=== PATIENT | male | born 2005 | race Caucasian/White ===

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

== ENCOUNTER 2024-07-09 00:08 | Emergency (ER) | payer SELFPAY ==
[2024-07-09 00:24] VITALS: TEMP 99.1
--- NOTE | 2024-07-09 00:39 | ERPHSYRPT ---
- History of Present Illness Time Seen by Provider: 07/09/24 00:38 Historian: patient Exam Limitations: no limitations Patient Subjective Stated Complaint: pt states that he woke up vomiting Triage Nursing Assessment: pt ambulated into the er; pt is axo x4; c/o vomiting; pt states 3/10 pain to abd; abd flat, soft, tender; c/o N/V, denies diarrhea; tenderness to epigastric; mucus membranes paink and moist; skin PDW; no respiratory distress present; vitals wnl Physician History: The patient presents with severe abdominal pain and vomiting. They are accompanied by their cousin. Severe abdominal pain began after about an hour of sleep, described as the worst they have ever experienced. The pain is located in the middle of the abdomen and was so intense that they were unable to reach the bathroom before collapsing in pain. Following the onset of abdominal pain, they began vomiting uncontrollably. There is no blood in the vomit. No previous similar episodes of abdominal pain. Earlier in the day, they consumed a chicken sandwich from [employer] that tasted unusual. Timing/Duration: today Activities at Onset: sleep Quality: sharpness Abdominal Pain Onset Location: generalized abdomen Pain Radiation: no radiation Severity of Pain-Max: moderate Severity of Pain-Current: mild Modifying Factors: Improves With: nothing. Worsens With: breathing, movement, palpation, vomiting Associated Symptoms: heartburn, loss of appetite, nausea, vomiting, No diarrhea, No fever/chills, No shortness of breath Previous symptoms: no prior history Allergies/Adverse Reactions: No Known Drug Allergies Allergy (Verified 07/09/24 00:12) Hx Tetanus, Diphtheria Vaccination/Date Given: Yes Hx Influenza Vaccination/Date Given: No Hx Pneumococcal Vaccination/Date Given: No Travel Risk - International Travel Have you traveled outside of the country in past 3 weeks: No - Emerging Infectious Disease Are you exhibiting symptoms associated with any current EIDs: Yes Symptoms: Abdominal Pain, Vomitting - Review of Systems All Other Systems: Reviewed and Negative - Past Medical History Pertinent Past Medical History: No - Past Surgical History Past Surgical History: No - Social History Smoking Status: Light tobacco smoker Exposure to second hand smoke: Yes Drug Use: none Patient Lives Alone: No - Social Determinants of Health Will the patient participate in the screening: Yes Do you worry about a steady place to live?: No Do you have any problems with any of the following?: No known problems In the past 12 months,have you had to go without utilities?: No Transportation Issues: No Has anyone in your support network made you feel unsafe?: No Have you or anyone in your house had to go without enough: No - Nursing Vital Signs Nursing Vital Signs: Initial Vital Signs Temperature 99.1 F 07/09/24 00:13 Pulse Rate 93 H 07/09/24 00:13 Respiratory Rate 18 07/09/24 00:13 Blood Pressure 127/69 07/09/24 00:13 O2 Sat by Pulse Oximetry 99 07/09/24 00:13 Pain Scale Pain Intensity 3 - Physical Exam General Appearance: no apparent distress Eye Exam: eyes nml inspection Respiratory Exam: airway intact, No respiratory distress Cardiovascular Exam: capillary refill <2 sec Gastrointestinal/Abdomen Exam: soft, normal bowel sounds, tenderness, No d istention, No mass, No guarding, No rebound Extremity Exam: No swelling, No tenderness Neurologic Exam: alert, oriented x 3, cooperative Skin Exam: normal color, warm, dry, No rash SpO2 Interpretation: normal SpO2: 99 O2 Delivery: Room Air - Course Nursing assessment & vital signs reviewed: Yes - CT Exams Abdomen/Pelvis CT Interpretation: Tele-radiologist Report, Other (small bowel ileus, no obstruction) Ordered Tests: Active Orders 24 hr Category Date Time Status ABDOMEN AND PELVIS W/0 CONTRAS [CT] Stat Exams 07/09/24 00:53 Completed CBC W DIFF Stat Lab 07/09/24 00:45 Completed CMP Stat Lab 07/09/24 00:45 Completed Medication Summary Discontinued Medications Generic Name Dose Route Start Last Admin Trade Name Demarco PRN Reason Stop Dose Admin Ondansetron HCl 4 mg 07/09/24 00:39 07/09/24 00:45 Zofran 4 Mg/Udtablet Orally Disintegrating PO 07/09/24 00:40 4 mg STAT ONE Administration Ondansetron HCl Confirm 07/09/24 00:45 Zofran 4 Mg/Udtablet Orally Disintegrating Administered 07/09/24 00:46 Dose 4 mg .ROUTE .STK-MED ONE Lab/Rad Data: Laboratory Result Diagrams 07/09/24 00:45 07/09/24 00:45 Laboratory Results 07/09/24 07/09/24 Range/Units 00:45 00:45 WBC 14.4 H (4.23-9.07) x10^3/uL RBC 4.36 L (4.63-6.08) x10^6/uL Hgb 13.1 L (13.7-17.5) g/dL Hct 37.4 L (40.1-51.0) % MCV 85.8 (79.0-92.2) fL MCH 30.0 (25.7-32.2) pg MCHC 35.0 (32.3-36.5) g/dL RDW 12.2 (11.6-14.4) % Plt Count 239 (163-337) x10^3/uL MPV 9.5 (9.4-12.4) fL Gran % 83.3 H (34.0-67.9) % Immature Gran % (Auto) 0.2 (0.001-0.429) % Nucleat RBC Rel Count 0.0 (0.00-0.2) % Eos # (Auto) 0.09 (0.04-0.54) x10^3/uL Immature Gran # (Auto) 0.03 (0.001-0.031) x10^3u/L Absolute Lymphs (auto) 1.18 L (1.32-3.57) x10^3/uL Absolute Monos (auto) 1.06 H (0.30-0.82) x10^3/uL Absolute Nucleated RBC 0.00 (0.00-0.012) x10^3u/L Lymphocytes % 8.2 L (21.8-53.1) % Monocytes % 7.4 (5.3-12.2) % Eosinophils % 0.6 L (0.8-7.0) % Basophils % 0.3 (0.2-1.2) % Absolute Granulocytes 12.01 H (1.78-5.38) x10^3/uL Basophils # 0.04 (0.01-0.08) x10^3/uL Sodium 137 (135-145) mmol/L Potassium 3.7 (3.5-5.1) mmol/L Chloride 104 (98-107) mmol/L Carbon Dioxide 24 (22-30) mmol/L Anion Gap 12.4 (5-15) MEQ/L BUN 19 (9-20) mg/dL Creatinine 0.89 (0.66-1.25) mg/dL Estimated GFR 125.0 ML/MIN Glucose 115 H (74-106) mg/dL Calcium 9.1 (8.4-10.2) mg/dL Total Bilirubin 0.70 (0.2-1.3) mg/dL AST 29 (17-59) U/L ALT 21 (0-50) U/L Alkaline Phosphatase 47 (38-126) U/L Serum Total Protein 6.8 (6.3-8.2) g/dL Albumin 4.4 (3.5-5.0) g/dL - Progress Progress: improved Progress Note: Acute Abdominal Pain Presents with severe acute abdominal pain in the mid-abdomen, accompanied by persistent emesis. Described as the most severe pain experienced. No prior similar episodes. Differential diagnosis includes gastroenteritis, potentially linked to recent meal at [employer], or viral gastroenteritis, as indicated by cousin's similar symptoms. Absence of hematemesis. - Order abdominal imaging to evaluate for acute abdominal pathology. - Obtain laboratory tests to assess for infection or other abnormalities. - Administer oral antiemetic for nausea. - Withhold oral intake until imaging results are available. Labs unremarkable, CT abd/pelvis shows small bowel ileus w/o obstruction. Patient feeling better at this time, will dc home with PO Zofran. Counseled pt/family regarding: lab results, diagnosis, need for follow-up, rad results Medical Desision Making - Diagnostic Testing Diagnostic test were ordered, analyzed, and reviewed by me: Yes Radiological Interpretation: Interpreted by me, Reviewed by me, Teleradiologist Report - Risk of complications The pt has a mod risk of morbidity or mortality based on: Need for prescription drug management - Departure Departure Disposition: Home Clinical Impression: Viral gastroenteritis, Ileus due to infection, Nausea and vomiting Condition: Good Critical Care Time: No Instructions: Viral gastroenteritis in adults Prescriptions: ondansetron HCL [Ondansetron HCl] 8 mg PO TID PRN 7 Days #21 tablet PRN Reason: Nausea
[2024-07-09] MEDS: ZOFRAN ODT 4 MG PO ONE (00:45)
[2024-07-09] MEDS ORDERED: ZOFRAN ODT 4 MG ONE (00:45)
[2024-07-09 00:51] LABS: Absolute Neutrophil Ct (ANC) 12.01 x10^3/uL (1.78-5.38); BASOPHIL % 0.3 % (0.2-1.2); Basophil (Absolute #) 0.04 x10^3/uL (0.01-0.08); Eosinophil % 0.6 % (0.8-7.0); Eosinophil (Absolute #) 0.09 x10^3/uL (0.04-0.54); Hematocrit 37.4 % (40.1-51.0); Hemoglobin 13.1 g/dL (13.7-17.5); IMMATURE GRAN # 0.03 x10^3u/L (0.001-0.031); IMMATURE GRAN % 0.2 % (0.001-0.429); Lymphocyte (Absolute #) 1.18 x10^3/uL (1.32-3.57); Lymphocytes % 8.2 % (21.8-53.1); Mean Cell Volume 85.8 fL (79.0-92.2); Mean Platelet Volume 9.5 fL (9.4-12.4); Monocyte (Absolute #) 1.06 x10^3/uL (0.30-0.82); Monocytes % 7.4 % (5.3-12.2); Neutrophil % 83.3 % (34.0-67.9); Platelet Count 239 x10^3/uL (163-337); Red Blood Count 4.36 x10^6/uL (4.63-6.08); Red Cell Distribution Width 12.2 % (11.6-14.4); White Blood Count 14.4 x10^3/uL (4.23-9.07)
[2024-07-09 01:07] LABS: ALBUMIN 4.4 g/dL (3.5-5.0); ANION GAP 12.4 MEQ/L (5-15); BILIRUBIN,TOTAL 0.7 mg/dL (0.2-1.3); Calcium 9.1 mg/dL (8.4-10.2); Creatinine 1 0.89 mg/dL (0.66-1.25); Potassium 3.7 mmol/L (3.5-5.1); Total Protein 6.8 g/dL (6.3-8.2)
--- NOTE | 2024-07-09 02:04 | XRAY ---
CLINICAL HISTORY: abd pain COMPARISON: TECHNIQUE: Contiguous axial images were obtained from the level of the diaphragm to the pubic symphysis without intravenous or oral contrast. Coronal and sagittal reconstructions were likewise performed and indicated to increase the sensitivity for detecting clinically relevant pathology. CT scan was performed according to ALARA (as low as reasonably achievable).? FINDINGS: The visualized lung bases are clear. Evaluation of the abdominal and pelvic visceral organs is limited without intravenous contrast. The unenhanced liver, spleen, pancreas, and adrenal glands are grossly unremarkable. The gallbladder is present.The kidneys are normal in size and attenuation without obvious calcification. There is no hydronephrosis or perinephric stranding. The ureters are normal in caliber. No adenopathy or fluid collections are seen. Small bowel loops appear fluid-filled and distended with a maximum diameter of 2.9 cm, predominantly jejunal loops in the left lumbar region without evidence of an obvious transition point. Moderate fecal loading of the colon was noted. No evidence of focal or diffuse bowel wall thickening. The appendix is not visualized in the right lower quadrant and no evidence of inflammation in the right iliac fossa.The aorta is normal in caliber.The urinary bladder is normal in contour. Pelvic viscera are grossly unremarkable. No aggressive appearing osseous lesions are identified. IMPRESSION: 1. No acute intra-abdominal abnormality was detected. 2. Small bowel ileus. Electronically Signed by: Lennox Aj MD. (07/09/2024 02:00:30 EST)
[2024-07-09 02:05] VITALS: RESP 16
[2024-07-09 02:09] VITALS: O2SAT 99
[2024-07-09 02:23] VITALS: BP 131/73; PULSE 97
== END 2024-07-09 02:23 | disposition home or self-care (01) ==
LOC: ED 00:08
DX: K52.9 Noninfective gastroenteritis and colitis, unspecified (principal); R11.2 Nausea with vomiting, unspecified; R10.9 Unspecified abdominal pain
CPT/HCPCS: 36415; 74176; 80053; 85025; 99284; Q0162